=== PATIENT | male | born 1980 | race Caucasian/White ===

== ENCOUNTER 2022-11-11 08:31 | Emergency (ER) | payer OTHER, MEDICAID ==
[~2022-11-11] VITALS: Ht 167.6 cm; Wt 63.5 kg
[~2022-11-11 08:31] MED LIST: ATI.5 PO; CEPH250C16 PO; HYDR-3926 PO; KEP500 PO; LEVO50TA11 PO; QUET50TA15 PO
--- NOTE | 2022-11-11 08:34 | NUR ---
PT PLACED IN BED 07 BY [facility]
[2022-11-11 08:37] VITALS: BP 115/92
--- NOTE | 2022-11-11 08:48 | NUR ---
Dr. Pantoja evaluating patient at bedside.
[2022-11-11] MEDS ORDERED: levETIRAcetam 1,000 MG in NACL 0.9% 100 ML IV ONE (09:00)
--- NOTE | 2022-11-11 11:10 | NUR ---
42 y/o male biba from home for seizure. Per [facility], aunt witnesssed sezure at home. Patient is noted with abrasion to left elbow. Patient denies any pain and does not remember incident that brought him to the ER. Medical History: Seizures NKDA
[2022-11-11 11:19] LABS: BASOPHILS % (AUTO) 0.4 % (0.0-2.0); EOSINOPHILS # (AUTO) 0.1 K/uL (0-0.4); EOSINOPHILS % (AUTO) 1.4 % (0.0-4.0); HEMATOCRIT 40.1 % (36-52); HEMOGLOBIN 13.9 g/dL (12.0-18.0); LYMPHOCYTES # (AUTO) 4.6 K/uL (2.0-11.5); MEAN CORPUSCULAR HEMOGLOBIN 29 pg (27-31); MEAN CORPUSCULAR HGB CONC 35 g/dL (33-37); MEAN CORPUSCULAR VOLUME 85.1 fL (80-94); MONOCYTES # (AUTO) 0.9 K/uL (0.8-1.0); MONOCYTES % (AUTO) 8.2 % (1.7-9.3); NEUTROPHILS # (AUTO) 5.1 K/uL (1.8-7.7); PLATELET COUNT (AUTO) 361 K/uL (140-450); RED BLOOD CELL COUNT(AUTO) 4.71 MIL/uL (4.20-6.10); RED CELL DISTRIBUTION WIDTH 13.5 % (11.6-13.7); WHITE BLOOD COUNT (AUTO) 10.8 K/uL (4.8-10.8)
[2022-11-11 11:22] VITALS: BP 100/70
[2022-11-11 11:36] LABS: ALBUMIN 4.2 g/dL (3.4-5.0); ANION GAP 12.1 (8-16); CARBON DIOXIDE 27.5 mmol/L (21-32); CREATININE 1.2 mg/dL (0.6-1.3); POTASSIUM 3.6 mmol/L (3.5-5.1); TOTAL BILIRUBIN 0.3 mg/dL (0.0-1.0)
[2022-11-11] MEDS ORDERED: levETIRAcetam 100 MG/ML ORASYR PO ONE (12:00)
--- NOTE | 2022-11-11 12:29 | NUR ---
Updated mom, Noemi on patients condition.
[2022-11-11 13:58] LABS: APPEARANCE,URINE CLEAR (CLEAR); BILIRUBIN,URINE NEGATIVE (NEGATIVE); BLOOD, URINE NEGATIVE (NEGATIVE); COLOR,URINE YELLOW (YELLOW); LEUKOCYTE ESTERASE ,URINE NEGATIVE (NEGATIVE); NITRITE, URINE NEGATIVE (NEGATIVE); UGLUCOSE NEGATIVE (NEGATIVE)
--- NOTE | 2022-11-11 14:30 | NUR ---
Patient is ambulatory and ready for discharged.
--- NOTE | 2022-11-11 15:05 | NUR ---
Patient discharged with v/s stable. Written and verbal after care instructions given. Patient verbalized understanding. Ambulatory with steady gait. All questions addressed prior to discharge. Advised to follow up with PMD.
--- NOTE | 2022-11-11 15:07 | NUR ---
The patient's care was reviewed and supervised by Ctaalina Lucas, RN, RN.
[2022-11-11 15:25] LABS: BARBITURATE, URINE NEGATIVE ng/ml (NEG <=200); BENZODIAZEPINE, URINE NEGATIVE ng/mL (NEG <=200); CANNABINOID, URINE POSITIVE ng/mL (NEG <=50); COCAINE, URINE NEGATIVE ng/mL (NEG <=300); OPIATE, URINE NEGATIVE ng/mL (NEG <=2000); PHENCYCLIDINE SCREEN,URINE NEGATIVE ng/mL (NEG <=25)
== END 2022-11-11 15:05 | disposition home or self-care (01) ==
LOC: MED 08:31
DX: G40.509 Epileptic seizures related to external causes, not intractable, without status epilepticus (principal); R41.0 Disorientation, unspecified; J45.909 Unspecified asthma, uncomplicated; Z98.890 Other specified postprocedural states; Z79.899 Other long term (current) drug therapy; Z79.2 Long term (current) use of antibiotics
CPT/HCPCS: 36415; 80053; 80305; 81003; 85025; 93005; 99284; J1953